=== PATIENT | female | born 1940 | race Caucasian/White ===

== ENCOUNTER 2020-12-17 11:27 | Emergency (ER) | payer MEDICAID, BC ==
[~2020-12-17] VITALS: Ht 160 cm; Wt 63.0 kg
[2020-12-17] MEDS ORDERED: KETOROLAC 60MG/2ML VIAL IM ONE (13:00)
[2020-12-17] MEDS ORDERED: TRAM50TA3 MT (14:47)
[2020-12-17] MEDS ORDERED: IBUP-2029 MT (14:49)
[2020-12-17 15:44] VITALS: BP 149/72
[2020-12-17] MEDS ORDERED: HYDROCODONE/ACETAMINOPHEN 5/325MG TABLET PO ONE (15:45)
== END 2020-12-17 15:45 | disposition home or self-care (01) ==
LOC: ER 11:27
DX: S42.254A Nondisplaced fracture of greater tuberosity of right humerus, initial encounter for closed fracture (principal); M81.0 Age-related osteoporosis without current pathological fracture; Z88.0 Allergy status to penicillin; W01.0XXA Fall on same level from slipping, tripping and stumbling without subsequent striking against object, initial encounter; Y93.89 Activity, other specified; Y92.520 Airport as the place of occurrence of the external cause
CPT/HCPCS: 29105; 73000; 73030; 73060; 82962; 96372; 99284; J1885; A4565